=== PATIENT | male | born 1950 | race Caucasian/White ===

== ENCOUNTER → 2018-07-06 12:45 | Outpatient (CLI) | payer MEDICARE, SELFPAY ==
[2018-07-06 14:24] LABS: Absolute Neutrophil Count 5.3 X10^3/uL (2.0-7.7); Basophil# 0.02 X10^3/uL; Basophil% 0.3 % (0-1); Eosinophil# 0.11 X10^3/uL; Eosinophils% 1.4 % (0-5); Hematocrit 47.7 % (40-54); Hemoglobin 15.9 g/dl (13.0-16.5); Lymphocyte % 22.1 % (19-41); Mean Corp Hgb Conc 33.3 g/gl (32-36); Mean Platelet Vol. 9.8 fl (6.2-12.0); Monocyte# 0.57 X10^3/uL; Monocyte% 7.4 % (0-10); Neutrophil # 5.27 X10^3/uL (2.7-7.7); Neutrophil % 68.7 % (47-70); Platelet Count 219 K/mm3 (150-450); RBC Distribution Width CV 12.7 % (11.6-14.6); RBC Distribution Width SD 42.9 fl (35.1-43.9); Red Blood Count 5.13 M/mm3 (4.6-6.2); White Blood Count 7.7 K/mm3 (4.4-11.0)
[2018-07-06 14:26] LABS: POSITIVE COUNT NO; POSITIVE DIFFERENTIAL NO; POSITIVE MORPHOLOGY NO
[2018-07-06 14:43] LABS: Alanine Aminotransfer ALT/SGPT 46 U/L (16-61); Anion Gap 8 (5-15); BUN 21 mg/dL (7-18); Calcium,Total 8.5 mg/dL (8.5-10.1); Chloride 103 mmol/L (98-107); Cholesterol 171 mg/dL (200); Creatinine, Serum 1.31 mg/dL (0.70-1.30); EST Glomerular Filtration Rate 58 mL/min (>60); Est Glom Filt Rate - Afr Amer 70 mL/min (>60); Glucose 89 mg/dL (74-106); High Density Lipoprotein 48 mg/dL; Potassium 3.6 mmol/L (3.5-5.1); Sodium Level 139 mmol/L (136-145); Thyroid Stim Hormone (TSH) 0.87 uIU/mL (0.358-3.74); Triglycerides 108 mg/dL; Very Low Density Lipoprotein 22 mg/dL (5-40)
== END ==
DX: R53.83 Other fatigue (principal); I10 Essential (primary) hypertension; E66.9 Obesity, unspecified
CPT/HCPCS: 36415; 80048; 80061; 84443; 84460; 85025

== ENCOUNTER → 2018-08-23 10:52 | Outpatient (CLI) | payer MEDICARE, SELFPAY ==
[2018-08-23 12:46] LABS: PSA,Total - Annual Screen 2.13 ng/mL (0.00-4.00)
== END ==
DX: Z12.5 Encounter for screening for malignant neoplasm of prostate (principal)
CPT/HCPCS: 36415; 84153; G0103

== ENCOUNTER → 2019-10-17 | Outpatient (CLI) | payer MEDICARE, SELFPAY ==
[2019-10-17 13:25] LABS: Anion Gap 6 (5-15); BUN 22 mg/dL (7-18); BUN/Creat Ratio 16.9 RATIO (10-20); Calcium,Total 8.6 mg/dL (8.5-10.1); Chloride 103 mmol/L (98-107); Cholesterol 174 mg/dL (200); EST Glomerular Filtration Rate 58 mL/min (>60); Est Glom Filt Rate - Afr Amer 70 mL/min (>60); Glucose 90 mg/dL (74-106); High Density Lipoprotein 45 mg/dL; Magnesium 2.5 mg/dL (1.6-2.6); Potassium 3.9 mmol/L (3.5-5.1); Sodium Level 137 mmol/L (136-145); Triglycerides 117 mg/dL; Very Low Density Lipoprotein 23 mg/dL (5-40)
== END | disposition home or self-care (01) ==
LOC: MFPLAB 10:19
PROVIDERS: PCP Family Medicine; Referring Provider Family Medicine; Visit Provider Family Medicine
DX: I10 Essential (primary) hypertension (principal)
CPT/HCPCS: 36415; 80048; 80061; 83735

== ENCOUNTER 2019-12-02 13:00 | Outpatient (RCR) | payer MEDICARE, SELFPAY ==
--- NOTE | 2019-10-25 14:55 | HP.PTEVAL_ITS ---
Patient's Visit Information RICHARD CASTILLO is a 68 year old M referred to Physical Therapy by Dr. Conner Blood DO with a diagnosis of r knee OA. Date of Evaluation: 10/25/19 Physical Therapist: MK RossT, OCS, CSCS - Visit Plan Frequency: 2-3x /Week Duration: 2-4 Weeks Plan: 2-3x/week for 2-4 weeks for. 1. rollout quad and ITB and stretch same, please teach for HEP. 2. strength painfree quad and hip R and progress to home exercises that patient can add to current home program. 3. 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 - Subjective Off and on for 20 years little R knee issue. Stating in April has starte dto buckle with sharp pain. Happens daily now a couple times and it casues him to fall into things. Walks a mile and a half per day. Walking in straight line is not a problem and does not buckle. Has tried copper fit sleeve adn no help. 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 Will have MRI on 10/27. Will f/u Dr. Blood on 11/05/19. Super cautious on steps needs handrail. Sleeping is OK. Daily acitivites are OK just has to take extra precautions. has rehabbed house in lst 6 months and on knees to garden but has to be cautious and use knee pads. Retired. Stiff in am. - Pain R knee pain Pain Intensity (Out of 10): 0 Pain Intensity Range: 0, 9 Comment: 9 when it danielle. - Objective Walks normal with some slightvarus R knee but minimal. No antalgia. Transfers and steps are normal and reciprocal. Tends to pivot slowly ansd with care. Tender to touch medial R knee joint line posterior> anterior. AROM B knees and hip WFL with some ITB and quad tightness at end range but full aROM without pain. HS 90/90 test is -5 L and -8 R. - bounce home, - patellar grind, - valgus and varus., - ant drawer. ankle strength 5/5, knee strength quad 4 R and 4+ L, no pain. HS 4+ B. Hip strength 4 IR and ER and 4- abd and ext and 4+ flexion., No pain. - Goals Goal 1:: Reduce knee giving out incidence to < 1 x week Goal Time Frame: 4-6 Weeks Goal 2:: Pt I approp HEP to minimize future problems Goal Time Frame: 4-6 Weeks Goal 3:: Pt feel 75% improved in overall condition. Goal Time Frame: 4-6 Weeks - Rehabilitation Potential Physical Therapy Diagnosis: R knee OA Rehabilitation Potential: Fair - Anticipated Interventions Patient/Client Instruction: Educate patient on: Condition, Plan of Care For the Purpose of:: To decrease pain, To increase tolerance to activity/condition/position Therapeutic Exercise to Include: Strength training, Flexibilty training For the Purpose of:: To decrease pain, To increase tolerance to activity/condition/position Orthotics: Brace For the Purpose of:: To decrease pain Thank you for the opportunity to evaluate your patient. For Medicare and Medicare HMO plans, please review the plan of care and approve it. It will need to be FAXED BACK to us at [phone] for Medicare purposes. For Medicare only, by signing this I certify the plan of care. Please let me know if there are questions or concerns regarding this plan of care. Physician Signature: Date:
--- NOTE | 2019-12-02 13:29 | HP.PTDCSUM ---
It has been my pleasure to treat RICHARD CASTILLO referred by Dr. Conner Blood DO, with the diagnosis of r knee OA for a total of 4 visit(s). Discharge Date: 12/02/19 Please see the following information for a summary of their discharge status. Subjective: Brought MRI results, lots of degeneration. Drove to [place] last week and harder times getting ex in that week but when I do them 4-5 x/week I feel decent adn a big plus. Doctor wants to know when he wants a new knee. Has had many painfree days. Doing 35 min of walking daily. R knee pain Pain Intensity (Out of 10): 0 % Improvement: 85 Objective/Function: Pt walking without giving out today easilya nd safely. Meeting goals and happy with progress. Balance is very good for his age. Goal 1:: Reduce knee giving out incidence to < 1 x week Goal 2:: Pt I approp HEP to minimize future problems Goal Progress: Goal Met Goal 3:: Pt feel 75% improved in overall condition. Goal Progress: Goal Met Plan: d/c If there are questions or concerns regarding this patient's physical therapy, please feel free to call me at [phone]. Thank you for the referral of this patient. Sincerely, Eliel Huitron, DPT, OCS, CSCS
== END 2019-12-02 19:00 | disposition home or self-care (01) ==
LOC: PT 13:00
PROVIDERS: PCP Family Medicine; Referring Provider Orthopaedic Surgery; Visit Provider Orthopaedic Surgery
DX: M17.11 Unilateral primary osteoarthritis, right knee (principal)
CPT/HCPCS: 97110; 97140; 97161; 97164

== ENCOUNTER → 2020-09-30 12:23 | Outpatient (CLI) | payer MEDICARE, SELFPAY ==
[2020-09-30 15:22] LABS: AST(SGOT) 32 U/L (15-37); Alanine Aminotransfer ALT/SGPT 46 U/L (16-61); Albumin, Serum 3.9 g/dL (3.2-5.0); Alkaline Phosphatase 83 U/L (45-117); Anion Gap 6 (5-15); BUN 13 mg/dL (7-18); BUN/Creat Ratio 11.4 RATIO (10-20); Chloride 104 mmol/L (98-107); Cholesterol 164 mg/dL (200); Creatinine, Serum 1.14 mg/dL (0.70-1.30); EST Glomerular Filtration Rate 67 mL/min (>60); Est Glom Filt Rate - Afr Amer 81 mL/min (>60); Glucose 92 mg/dL (74-106); High Density Lipoprotein 47 mg/dL; Protein, Total 7.9 g/dL (6.4-8.2); Sodium Level 137 mmol/L (136-145); Triglycerides 133 mg/dL; Very Low Density Lipoprotein 27 mg/dL (5-40)
[2020-09-30 15:33] LABS: Microalbumin,Random Urine 92.6 mg/L (NO RANGE EST.); Microalbumin:Creatinine Ratio 75.3 mg/g CRE (<30 mg/g CRE)
== END ==
PROVIDERS: PCP Family Medicine; Referring Provider Family Medicine; Visit Provider Family Medicine
DX: I10 Essential (primary) hypertension (principal)
CPT/HCPCS: 36415; 80053; 80061; 82043; 82570

== ENCOUNTER → 2021-03-31 08:59 | Outpatient (CLI) | payer MEDICARE, SELFPAY ==
[2021-03-31 10:14] LABS: Absolute Lymphocyte Count 1.61 X10^3/uL (0.83-4.51); Absolute Neutrophil Count 3.2 X10^3/uL (2.0-7.7); Basophil# 0.03 X10^3/uL; Basophil% 0.6 % (0-1); Eosinophils% 1.8 % (0-5); Hematocrit 46.6 % (40-54); Hemoglobin 15.9 g/dL (13.0-16.5); Lymphocyte # 1.61 X10^3/ul (0.83-4.51); Lymphocyte % 29.6 % (19-41); Mean Corp Hgb Conc 34.1 g/dL (32-36); Mean Corpuscular Hgb 31.1 pg (27.0-32.0); Mean Corpuscular Volume 91.2 fL (80-94); Mean Platelet Vol. 9.3 fl (6.2-12.0); Monocyte# 0.46 X10^3/uL; Monocyte% 8.5 % (0-10); NRBC Flagged by Analyzer 0 % (0-5); Neutrophil # 3.23 X10^3/uL (2.7-7.7); Neutrophil % 59.3 % (47-70); Platelet Count 208 K/mm3 (150-450); RBC Distribution Width CV 13.1 % (11.6-14.6); RBC Distribution Width SD 44.2 fl (35.1-43.9); Red Blood Count 5.11 M/mm3 (4.6-6.2); White Blood Count 5.4 K/mm3 (4.4-11.0)
[2021-03-31 10:38] LABS: AST(SGOT) 25 U/L (15-37); Alanine Aminotransfer ALT/SGPT 38 U/L (16-61); Alkaline Phosphatase 79 U/L (45-117); Anion Gap 8 (5-15); BUN 16 mg/dL (7-18); BUN/Creat Ratio 13.4 RATIO (10-20); Calcium,Total 8.8 mg/dL (8.5-10.1); Chloride 106 mmol/L (98-107); Cholesterol 186 mg/dL (200); Creatinine, Serum 1.19 mg/dL (0.70-1.30); EST Glomerular Filtration Rate 64 mL/min (>60); Est Glom Filt Rate - Afr Amer 77 mL/min (>60); Globulin 3.9 g/dL (2.2-4.2); Glucose 97 mg/dL (74-106); High Density Lipoprotein 48 mg/dL; Potassium 3.8 mmol/L (3.5-5.1); Protein, Total 7.9 g/dL (6.4-8.2); Sodium Level 141 mmol/L (136-145); Triglycerides 149 mg/dL; Uric Acid 5.5 mg/dL (3.5-7.2); Very Low Density Lipoprotein 30 mg/dL (5-40)
== END ==
PROVIDERS: PCP Family Medicine; Referring Provider Family Medicine; Visit Provider Family Medicine
DX: I10 Essential (primary) hypertension (principal); M79.673 Pain in unspecified foot
CPT/HCPCS: 36415; 80053; 80061; 84550; 85025

== ENCOUNTER → 2021-09-17 | Outpatient (CLI) | payer MEDICARE, SELFPAY ==
[2021-09-17 16:05] LABS: PSA,Total- Diagnostic 2.38 ng/mL (0.0-4.0)
[2021-09-23 11:09] LABS: Testosterone, Free 5.98 ng/dL (5.00-21.00)
[2021-09-23 21:41] LABS: Testosterone, % Free 1.96 % (1.50-4.20); Testosterone, Total 305 ng/dL (264-916)
== END | disposition home or self-care (01) ==
LOC: MTLAB 13:06
PROVIDERS: PCP Family Medicine; Referring Provider Family Medicine; Visit Provider Family Medicine
DX: N52.9 Male erectile dysfunction, unspecified (principal); R39.15 Urgency of urination
CPT/HCPCS: 36415; 84153; 84402; 84403

== ENCOUNTER → 2021-11-08 | Outpatient (CLI) | payer MEDICARE, SELFPAY | END | disposition home or self-care (01) | LOC: LABSPEC 12:27 | PROVIDERS: PCP Family Medicine; Visit Provider Nurse Practitioner Family | DX: U07.1 COVID-19 (principal) | CPT/HCPCS: 87635; U0003; U0005 ==

== ENCOUNTER → 2021-12-01 | Outpatient (CLI) | payer MEDICARE, SELFPAY ==
--- NOTE | 2021-12-01 12:52 | US_ITS ---
STUDY: RENAL ULTRASOUND - COMPLETE REASON FOR EXAM: Male, 71 years old. Urinary frequency. TECHNIQUE: Ultrasound evaluation of the kidneys was performed with real-time and static montalvo-scale imaging. COMPARISON: None. FINDINGS: RIGHT KIDNEY: Normal location of the right kidney, which is normal in size. The right kidney measures 11 cm. There is a normal cortex of the right kidney. The renal cortex measures 1.8 cm. There is no right renal mass or cyst. There are no right renal calculi. There is no right hydronephrosis. DISTAL RIGHT URETER: There is non-visualization of the distal right ureter. There is no demonstrated right ureterovesical junction calculus. There is no demonstrated right ureteral jet. LEFT KIDNEY: Normal location of the left kidney, which is normal in size. The left kidney measures 11.6 cm. There is a normal cortex of the left kidney. The renal cortex measures 2.3 cm. There is no left renal mass or cyst. There are no left renal calculi. There is no left hydronephrosis. DISTAL LEFT URETER: There is non-visualization of the distal left ureter. There is no demonstrated left ureterovesical junction calculus. There is no demonstrated left ureteral jet. BLADDER: The poorly distended urinary bladder has a volume of 92 ml. The empty urinary bladder has a volume of 64 ml. The bladder wall appears trabeculated. Measuring 3 mm in thickness. The prostate appears to extend upward into the base of the urinary bladder. There is no other bladder mass. There are no demonstrated bladder calculi. US/Kidney and Bladder IMPRESSION: 1. Normal ultrasound of the kidneys. 2. Trabeculated urinary bladder wall with large post void residual. 3. Enlarged prostate. Electronically Signed: Aquiles Layton DO at 17:17 EDT Reading Location ID and State: [address] [place] [address] Tel [phone], Service support ,
== END | disposition home or self-care (01) ==
LOC: US 12:51
PROVIDERS: PCP Family Medicine; Referring Provider Family Medicine; Visit Provider Family Medicine
DX: R35.0 Frequency of micturition (principal)
CPT/HCPCS: 76770

== ENCOUNTER → 2022-05-31 | Outpatient (CLI) | payer MEDICARE, SELFPAY ==
--- NOTE | 2022-05-31 09:10 | RAD_ITS ---
INDICATION: CHEST PAIN EXAMINATION: Frontal and lateral views of the chest. COMPARISON: None. FINDINGS: Frontal and lateral views of the chest were obtained. The cardiac silhouette is not enlarged. No confluent airspace disease. No pleural effusion or pneumothorax. No acute fracture identified. RAD/Chest PA and Lateral IMPRESSION: No acute pulmonary disease. Electronically Signed: Uvaldo Gallegos MD at 0:53 EST ,
[2022-05-31 09:48] LABS: Absolute Neutrophil Count 3.3 X10^3/uL (2.0-7.7); Basophil# 0.03 X10^3/uL; Basophil% 0.6 % (0-1); Eosinophil# 0.11 X10^3/uL; Eosinophils% 2.1 % (0-5); Hematocrit 48.9 % (40-54); Hemoglobin 16.2 g/dL (13.0-16.5); Lymphocyte % 24.9 % (19-41); Mean Corp Hgb Conc 33.1 g/dL (32-36); Mean Corpuscular Hgb 31.1 pg (27.0-32.0); Mean Corpuscular Volume 93.9 fL (80-94); Mean Platelet Vol. 9.2 fl (6.2-12.0); Monocyte# 0.47 X10^3/uL; NRBC Flagged by Analyzer 0 % (0-5); Neutrophil # 3.31 X10^3/uL (2.7-7.7); Neutrophil % 63.2 % (47-70); Platelet Count 193 K/mm3 (150-450); RBC Distribution Width CV 12.7 % (11.6-14.6); RBC Distribution Width SD 43.8 fl (35.1-43.9); Red Blood Count 5.21 M/mm3 (4.6-6.2); White Blood Count 5.2 K/mm3 (4.4-11.0)
[2022-05-31 10:33] LABS: ALB/GLOB Ratio 0.9 RATIO (0.9-2.4); AST(SGOT) 32 U/L (15-37); Alanine Aminotransfer ALT/SGPT 48 U/L (16-61); Albumin, Serum 3.6 g/dL (3.2-5.0); Alkaline Phosphatase 70 U/L (45-117); Anion Gap 7 (5-15); BUN 13 mg/dL (7-18); BUN/Creat Ratio 12.6 RATIO (10-20); Calcium,Total 8.8 mg/dL (8.5-10.1); Chloride 105 mmol/L (98-107); Creatinine, Serum 1.03 mg/dL (0.70-1.30); EST Glomerular Filtration Rate 75 mL/min (>60); Est Glom Filt Rate - Afr Amer 91 mL/min (>60); Glucose 93 mg/dL (74-106); Magnesium 2.1 mg/dL (1.6-2.6); Potassium 3.7 mmol/L (3.5-5.1); Protein, Total 7.6 g/dL (6.4-8.2); Sodium Level 138 mmol/L (136-145); Thyroid Stim Hormone (TSH) 1.15 uIU/mL (0.358-3.74)
== END | disposition home or self-care (01) ==
PROVIDERS: PCP Family Medicine; Referring Provider Family Medicine; Visit Provider Family Medicine
DX: R07.89 Other chest pain (principal); R13.10 Dysphagia, unspecified; R42 Dizziness and giddiness
CPT/HCPCS: 36415; 71046; 80053; 83735; 84443; 85025

== ENCOUNTER 2022-06-02 21:35 | Emergency (ER) | payer MEDICARE, SELFPAY ==
[2022-06-02 21:35] VITALS: BP 171/107; PULSE 68; RESP 16; TEMP 36.7; O2SAT 96; BMI 34.2
--- NOTE | 2022-06-02 21:44 | EKG12_ITS ---
Test Reason : DIZZINESS Blood Pressure : / mmHG Vent. Rate : 066 BPM Atrial Rate : 066 BPM P-R Int : 156 ms QRS Dur : 104 ms QT Int : 406 ms P-R-T Axes : 062 011 045 degrees QTc Int : 425 ms Sinus rhythm with occasional Premature ventricular complexes Incomplete right bundle branch block Borderline ECG Confirmed by HIRAM MALONE, JUANCARLOS ([id number]), editorial cartoonist YANA WASHINGTON ([id number]) on 06/06/2022 11:29:27 AM Referred By: Confirmed By:JUANCARLOS GANDHI MD
[2022-06-02 21:48] VITALS: BP 154/95; PULSE 63; RESP 21; O2SAT 95
[2022-06-02 21:54] VITALS: BMI 33.7
--- NOTE | 2022-06-02 22:08 | CT_ITS ---
INDICATION: Intractable dizziness EXAMINATION: CTA head and neck with contrast TECHNIQUE: Subsequently, routine carotid CT angiogram protocol was performed without and with IV contrast. In addition, images were obtained of the [place]. NASCET criteria using the distal ICAs for comparison were used for evaluation of stenoses. 3D reconstructions were reviewed. A radiation dose optimization technique was used for this scan. IV Contrast dosage and agent: COMPARISON: None. FINDINGS: --CTA NECK: AORTIC ARCH AND BRANCHES: Normal anatomy, patent. RIGHT CCA: No occlusion, significant stenosis or dissection. RIGHT ICA: Mild stenosis of the proximal ICA due to atheromatous plaque. LEFT CCA: No occlusion, significant stenosis or dissection. LEFT ICA: No occlusion, significant stenosis or dissection. RIGHT VERTEBRAL ARTERY: No occlusion, significant stenosis or dissection. LEFT VERTEBRAL ARTERY: No occlusion, significant stenosis or dissection. NECK SOFT TISSUES: Unremarkable. --CTA HEAD: --Anterior circulation: ICAs: No significant stenosis at the intracranial/visualized segments. ACAs: No significant stenosis at the visualized segments. ACOM: Present. MCAs: No significant stenosis at the visualized segments. --Posterior circulation: PCOMs: Nonvisualized. senior functional analyst: No significant stenosis at the visualized segments. BASILAR ARTERY: No significant stenosis. VERTEBRAL ARTERIES: No significant stenosis at the intradural/visualized segments. No evidence of intracranial aneurysm or vascular malformation. Mild mucosal thickening in the maxillary sinuses. CT/CTA Head AND Neck W/ Contrast IMPRESSION: Mild right ICA stenosis due to plaque. Otherwise negative CTA head and neck. Electronically Signed: Steph Martinez MD at 23:51 EST Reading Location ID and State: [id number] / Tel , Service support ,
[2022-06-02 22:21] LABS: Bedside Glucose 143 mg/dL (74-106)
[2022-06-02 22:36] LABS: Absolute Lymphocyte Count 1.85 X10^3/uL (0.83-4.51); Absolute Neutrophil Count 3.7 X10^3/uL (2.0-7.7); Basophil# 0.03 X10^3/uL; Basophil% 0.5 % (0-1); Eosinophil# 0.22 X10^3/uL; Eosinophils% 3.4 % (0-5); Hematocrit 46.2 % (40-54); Hemoglobin 15.5 g/dL (13.0-16.5); Lymphocyte # 1.85 X10^3/ul (0.83-4.51); Lymphocyte % 28.5 % (19-41); Mean Corp Hgb Conc 33.5 g/dL (32-36); Mean Corpuscular Hgb 31.5 pg (27.0-32.0); Mean Corpuscular Volume 93.9 fL (80-94); Mean Platelet Vol. 9.5 fl (6.2-12.0); Monocyte# 0.63 X10^3/uL; Monocyte% 9.7 % (0-10); NRBC Flagged by Analyzer 0 % (0-5); Neutrophil # 3.74 X10^3/uL (2.7-7.7); Neutrophil % 57.7 % (47-70); Platelet Count 203 K/mm3 (150-450); RBC Distribution Width CV 12.7 % (11.6-14.6); RBC Distribution Width SD 43.7 fl (35.1-43.9); Red Blood Count 4.92 M/mm3 (4.6-6.2); White Blood Count 6.5 K/mm3 (4.4-11.0)
[2022-06-02 22:50] LABS: Anion Gap 6 (5-15); BUN 17 mg/dL (7-18); BUN/Creat Ratio 14.9 RATIO (10-20); Calcium,Total 8.5 mg/dL (8.5-10.1); Chloride 106 mmol/L (98-107); Creatinine, Serum 1.14 mg/dL (0.70-1.30); EST Glomerular Filtration Rate 67 mL/min (>60); Est Glom Filt Rate - Afr Amer 81 mL/min (>60); Estimated Creatinine Clearance 52.08 ml/min; Glucose 139 mg/dL (74-106); Magnesium 2.1 mg/dL (1.6-2.6); Potassium 3.8 mmol/L (3.5-5.1); Sodium Level 140 mmol/L (136-145)
[2022-06-02 22:54] VITALS: BP 147/102; PULSE 68; RESP 17; O2SAT 92
[2022-06-02 23:22] LABS: Bacteria 0 SEEN /hpf (None Seen); Mucous, Urine 0 SEEN /hpf (<or=2+); Red Blood Cells-Urine 0 SEEN /hpf (0-5); Squamous Epithelial Cells - UA 0 SEEN /hpf (0-5); White Blood Cells 0 SEEN /hpf (0-5)
[2022-06-02 23:25] LABS: Color, Urine Yellow (Yellow); Glucose, Dipstick Normal (Normal); Ketone-Dipstick Negative (Negative); Leukocyte Esterase-Dipstick Negative /ul (Negative); Nitrite-Dipstick Negative (Negative); Occult Blood-Urine Negative /ul (Negative); Protein-Dipstick 15 mg/dl (Negative); Urine Bilirubin Dipstick Negative (Negative); Urine Clarity Clear (Clear); Urine Urobilinogen Normal (Normal)
[2022-06-03 00:03] VITALS: BP 142/93; BP 144/87; BP 155/98; PULSE 63; PULSE 68; PULSE 69; RESP 18; O2SAT 97
[2022-06-03] MEDS: 0.9% Normal Saline 1,000 ML 999 ML IV (00:09)
--- NOTE | 2022-06-03 01:00 | EX.ED.DYSGE1 ---
HPI History of Present Illness Chief Complaint: Neuro S/Sx Narrative Narrative: Patient is a 71-year-old male with past medical history of hypertension. He states since the end of March he has been having bouts of dizziness which she describes as more of a sense of motion that seem to occur mainly with changes in position. He states that last week he was watching TV when the screen became blurry for a few minutes and then resolved. He states this evening he was having some dizziness and also noticed some change in vision and this concerned him as it was a repeat episode from a few weeks ago and he thought he may be having some type of strokelike symptoms and therefore came in for evaluation. Patient does state that upon arrival the vision has resolved and that his dizziness has improved at rest as well. [facility] Medical History (Updated 06/03/22 @ 01:[address] Miguel A Knight, DO) Hypertension Home Medications diazepam 5 mg tablet (Valium) 2.5 mg PO TID Dizziness #10 tabs 06/03/22 [Rx Last Taken Unknown] Allergy/AdvReac Type Severity Reaction Status Date / Time morphine Allergy Anaphylaxis Verified 06/02/22 21:46 Social History Smoking Status: Never smoker [facility] ED Constitutional Constitutional ED: Denies chills or fever(s) Eyes Eyes: Reports change in vision ENT ENT ED: Reports other Details: Patient denies tinnitus ; Denies ear pain or sore throat Cardiovascular Cardiovascular: Denies chest pain Respiratory/Chest Respiratory/Chest: Denies cough or dyspnea Gastrointestinal Gastrointestinal: Denies abdominal pain, diarrhea, nausea or vomiting Genitourinary Genitourinary ED: Denies dysuria Musculoskeletal Musculoskeletal: Denies myalgias Integumentary Denies rash Neurologic Neurologic: Reports other Details: Positive dizziness ; Denies headache(s), paresthesias or weakness Hematologic/Lymphatic Hematologic/Lymphatic: Denies easy bleeding or easy bruising EXAM Physical Exam Const Vital Signs: 06/02/22 21:35 06/02/22 21:48 06/02/22 21:49 Temperature 98.0 F Temperature Source Temporal Pulse Rate 68 63 Pulse Rate [Lying] Pulse Rate [Sitting (for 1 minute prior to obtaining)] Pulse Rate [Standing (for 1 minute prior to obtaining)] Respiratory Rate 16 21 H Respiratory Effort Normal Non-Labored Blood Pressure 171/107 H 154/95 H Blood Pressure [Lying] Blood Pressure [Sitting (for 1 minute prior to obtaining)] Blood Pressure [Standing (for 1 minute prior to obtaining)] Blood Pressure Mean 128 114 Blood Pressure Mean [Lying] Blood Pressure Mean [Sitting (for 1 minute prior to obtaining)] Blood Pressure Mean [Standing (for 1 minute prior to obtaining)] Pulse Ox 96 95 Oxygen Delivery Method Room Air Room Air 06/02/22 22:54 06/03/22 00:03 06/03/22 00:03 Temperature Temperature Source Pulse Rate 68 68 Pulse Rate [Lying] 63 Pulse Rate [Sitting (for 1 minute prior to obtaining)] 69 Pulse Rate [Standing (for 1 minute prior to obtaining)] 68 Respiratory Rate 17 18 Respiratory Effort Blood Pressure 147/102 H Blood Pressure [Lying] 144/87 H Blood Pressure [Sitting (for 1 minute prior to obtaining)] 142/93 H Blood Pressure [Standing (for 1 minute prior to obtaining)] 155/98 H Blood Pressure Mean 117 Blood Pressure Mean [Lying] 106 Blood Pressure Mean [Sitting (for 1 minute prior to obtaining)] 109 Blood Pressure Mean [Standing (for 1 minute prior to obtaining)] 117 Pulse Ox 92 97 Oxygen Delivery Method Room Air Room Air 06/03/22 01:14 Temperature Temperature Source Pulse Rate 69 Pulse Rate [Lying] Pulse Rate [Sitting (for 1 minute prior to obtaining)] Pulse Rate [Standing (for 1 minute prior to obtaining)] Respiratory Rate 18 Respiratory Effort Blood Pressure 145/68 H Blood Pressure [Lying] Blood Pressure [Sitting (for 1 minute prior to obtaining)] Blood Pressure [Standing (for 1 minute prior to obtaining)] Blood Pressure Mean Blood Pressure Mean [Lying] Blood Pressure Mean [Sitting (for 1 minute prior to obtaining)] Blood Pressure Mean [Standing (for 1 minute prior to obtaining)] Pulse Ox 100 Oxygen Delivery Method Positive well nourished and well developed General Appearance ED: well developed HEENT Reports moist mucous membranes Eyes PERRL and EOMs intact bilaterally Eyes Narrative: No blood or thunder appearance noted on ophthalmologic exam there is also no paleness to the macula noted Neck supple Resp normal respiratory effort and clear to auscultation bilaterally Cardio regular rate and regular rhythm Rate: other Other Details: Radial pulses are plus 2 out of 4 bilaterally are equal and symmetric GI normal to inspection, nondistended, normoactive bowel sounds, non-tender, non-distended and no masses Auscultation: normoactive bowel sounds Palpation: soft Extremity normal to inspection Neuro oriented x3, CN's II-XII intact bilaterally and no sensory deficits noted Neuro Narrative: Cranial nerves II through XII are grossly intact there are no focal neurologic deficits. No pronator drift no dysmetria no truncal ataxia. NIH stroke scale score of 0. There is mild horizontal nystagmus noted and positive Hallpike Chandler exam on right. Sensorium / Orientation: alert Psych mental status grossly normal Skin no rashes or lesions noted MDM MDM MDM Narrative Medical decision making narrative: Patient presented to the ER slightly hypertensive but has a history of this and otherwise vitals are stable. He reported longstanding intermittent dizziness that is worse with position change which is most consistent with peripheral vertigo as he has a positive Hallpike Chandler exam and horizontal nystagmus. However as there is a chance it could be central vertigo or brainstem in nature I did elect to perform basic labs and a CTA especially as he reported change in vision. Lab work showed no anemia no electrolyte derangement no signs of acute kidney injury. Orthostatic vital signs were negative. CTA showed mild right internal carotid artery stenosis which could be a cause of intermittent vision change but as the stenosis is just mild I doubt this is causing any issues. The patient was given IV fluids and oral Valium. On reevaluation he had improvement of symptoms and his vision remains normal. He is able to ambulate with a steady gait and therefore this time I do not feel there is need for further work-up as symptoms have resolved and work-up reveals no signs of acute stroke anemia or electrolyte dysfunction. He can be given symptomatic medication and discharged home with outpatient follow-up Lab Data Attestation: I reviewed the patient's lab results. Labs: Laboratory Results - last 24 hr 06/02/22 06/02/22 06/02/22 21:58 22:31 22:31 WBC 6.5 RBC 4.92 Hgb 15.5 Hct 46.2 MCV 93.9 MCH 31.5 MCHC 33.5 RDW Std Deviation 43.7 RDW Coeff of Xavier 12.7 Plt Count 203 MPV 9.5 Immature Gran % (Auto) 0.200 Neut % (Auto) 57.7 Lymph % (Auto) 28.5 [place] % (Auto) 9.7 Eos % (Auto) 3.4 Baso % (Auto) 0.5 Absolute Neuts (auto) 3.7 Absolute Lymphs (auto) 1.85 Nucleated RBC % 0 Sodium 140 Potassium 3.8 Chloride 106 Carbon Dioxide 28.0 Anion Gap 6 BUN 17 Creatinine 1.14 Estim Creat Clear Calc 52.08 Est GFR (MDRD) Af Amer 81 Est GFR (MDRD) Non-Af 67 BUN/Creatinine Ratio 14.9 Glucose 139 H Calcium 8.5 Magnesium 2.1 Urine Color Urine Clarity Urine pH Ur Specific [place] Urine Protein Urine Glucose (UA) Urine Ketones Urine Occult Blood Urine Nitrite Urine Bilirubin Urine Urobilinogen Ur Leukocyte Esterase Urine RBC Urine WBC Ur Squamous Epith Cells Urine Bacteria Urine Mucus POC Glucose 143 H 06/02/22 23:18 WBC RBC Hgb Hct MCV MCH MCHC RDW Std Deviation RDW Coeff of Xavier Plt Count MPV Immature Gran % (Auto) Neut % (Auto) Lymph % (Auto) [place] % (Auto) Eos % (Auto) Baso % (Auto) Absolute Neuts (auto) Absolute Lymphs (auto) Nucleated RBC % Sodium Potassium Chloride Carbon Dioxide Anion Gap BUN Creatinine Estim Creat Clear Calc Est GFR (MDRD) Af Amer Est GFR (MDRD) Non-Af BUN/Creatinine Ratio Glucose Calcium Magnesium Urine Color Yellow Urine Clarity Clear Urine pH 7.0 Ur Specific [place] 1.010 Urine Protein 15 H Urine Glucose (UA) Normal Urine Ketones Negative Urine Occult Blood Negative Urine Nitrite Negative Urine Bilirubin Negative Urine Urobilinogen Normal Ur Leukocyte Esterase Negative Urine RBC 0 SEEN Urine WBC 0 SEEN Ur Squamous Epith Cells 0 SEEN Urine Bacteria 0 SEEN Urine Mucus 0 SEEN POC Glucose Radiography Diagnostic Testing: Clinical Impression(s) from Imaging Studies Head/Neck CTA 06/02/22 22:08 IMPRESSION: Mild right ICA stenosis due to plaque. Otherwise negative CTA head and neck. Electronically Signed: Steph Martinez MD at 23:51 EST Reading Location ID and State: [id number] / Tel , Service support , Discharge Plan Triage Chief Complaint: Neuro S/Sx ED Provider: Miguel A Knight Dx/Rx/DC Orders Clinical Impression: Peripheral vertigo, Stenosis of right internal carotid artery Instructions: ED Vertigo, Unspecified, Carotid Artery Disease Prescriptions: New diazepam [Valium] 5 mg tablet 2.5 mg PO TID Qty: 10 0RF Primary Care Provider: Eliel Bonner Referrals: Eliel Bonner MD [Primary Care Provider] - Activity Restrictions/Additional Instructions: Your dizzy symptoms seem to be related to the inner ear and peripheral vertigo therefore take the Valium as directed to help control this. Your CTA did show mild right internal carotid artery stenosis which can cause vision changes. As a CTA stated this was mild I have low concern that this is the cause of your symptoms and was most likely related to the vertigo please talk your family doctor about working this up further with possible ultrasound and/or MRI and return to the ER should you have any further concerns Disposition Disposition: Home, Self Care Discharge Date/Time: 06/03/22 01:15
[2022-06-03 01:14] VITALS: BP 145/68; PULSE 69; RESP 18; O2SAT 100
== END 2022-06-03 01:15 | disposition home or self-care (01) ==
PROVIDERS: Emergency Provider Emergency Medicine; PCP Family Medicine; Visit Provider Emergency Medicine
DX: H81.399 Other peripheral vertigo, unspecified ear (principal); I65.21 Occlusion and stenosis of right carotid artery; I10 Essential (primary) hypertension
CPT/HCPCS: 70496; 70498; 80048; 81001; 82962; 83735; 85025; 93005; 96360; 99284; J7030; Q9967; A4216

== ENCOUNTER → 2022-06-06 | Outpatient (CLI) | payer MEDICARE, SELFPAY ==
[2022-06-06 18:08] LABS: CRP < 2.90 mg/L (0.0-3.0)
[2022-06-06 18:23] LABS: Erythrocyte Sedimentation Rate 13 mm/hr (0-20)
== END | disposition home or self-care (01) ==
LOC: MFPLAB 14:33
PROVIDERS: PCP Family Medicine; Visit Provider Family Medicine
DX: J01.90 Acute sinusitis, unspecified (principal)
CPT/HCPCS: 36415; 85652; 86140

== ENCOUNTER → 2022-06-07 | Outpatient (CLI) | payer MEDICARE, SELFPAY ==
--- NOTE | 2022-06-07 09:47 | RAD_ITS ---
STUDY: X-RAY - ESOPHAGUS (BARIUM SWALLOW) WITH FLUOROSCOPY REASON FOR EXAM: Male, 71 years old. Dysphagia of liquid and solid TECHNIQUE: 14 view(s) of the esophagus were obtained following swallowing of barium. FLUOROSCOPY TIME (if supplied): (23 seconds) minutes/seconds. 2.3 mGy COMPARISON: None. FINDINGS: There is no demonstrated esophageal foreign body. There is no demonstrated stricture or mucosal abnormality. Normal gastroesophageal junction, without a demonstrated hiatal hernia. The patient ingested a 12 mm tablet of barium without any difficulty. There is atherosclerotic tortuosity of the aortic arch and descending thoracic aorta. Normal visualized pulmonary parenchyma. Normal visualized osseous structures of the thorax. RAD/Esophagus Single Contrast IMPRESSION: Normal plain film x-ray examination (barium swallow) of the esophagus. Electronically Signed: Hernan Peter MD at 10:41 EST ,
== END | disposition home or self-care (01) ==
LOC: RAD 09:46
PROVIDERS: PCP Family Medicine; Visit Provider Family Medicine
DX: R13.10 Dysphagia, unspecified (principal)
CPT/HCPCS: 74220

== ENCOUNTER → 2022-06-08 | Outpatient (CLI) | payer MEDICARE, SELFPAY ==
--- NOTE | 2022-06-08 14:52 | STRESSREP ---
Stress Test Report Exercise stress test. 71-year-old male with a history of chest pain Stress protocol: Resting EKG demonstrates normal sinus rhythm with a rate of 62 bpm resting blood pressure is 148/96 mmHg. The patient exercised according to the regular Cliff protocol for a total duration of 7 minutes and 15 seconds attaining a maximum heart rate of 153 bpm which was 104% of maximum predicted heart rate; the maximum workload was 10.4 metabolic equivalents. At rest there were no ST or T wave changes noted to suggest ischemia and at peak exercise upsloping ST changes only were noted which did not meet the criteria for ischemia. No clinical angina was noted the test was terminated due to the target heart rate being achieved/fatigue as well as shortness of breath and occasional wheezing. The peak blood pressure was 210/110 mmHg. the above is suggestive of a hypertensive response to exercise. Rate-pressure product was 20,900. Conclusion: Stress test with no EKG criteria for ischemia at a high workload. Hypertensive response to exercise
== END | disposition home or self-care (01) ==
PROVIDERS: PCP Family Medicine; Visit Provider Family Medicine
DX: R07.89 Other chest pain (principal)
CPT/HCPCS: 93017

== ENCOUNTER → 2022-07-12 | Outpatient (CLI) | payer MEDICARE, SELFPAY ==
--- NOTE | 2022-07-12 15:22 | ST.MBS ---
Modified Barium Swallow - Patient Information Study Date: 07/12/22 Study Time: 13:10 Direct Billable Minutes: 115 Total Minutes procedure & reportin Diagnosis: Dysphagia, unspecified (R13.10), GERD (K21.9) Referring Physician: Parrish Camilo Reason for Referral: Objectively assess swallow function, assess risk for aspiration, and determine recommendations for least restrictive diet textures and compensatory strategies to improve safety of swallow. Medical History: Daren Gonzalez is a 71-year-old male with a history of a deviated septum, past hx of surgery for cauliflower ear, and hx of reflux. Patient is taking omeprazole to manage reflux. Patient reports he has been experiencing liquids occasionally feeling caught in his throat, at the level of his [place] apple, and occasionally foods being caught. Patient reports more concern for liquids rather than foods. Patient reports these symptoms occur ~every 1-3 days. Patient reports he will cough on drinks/food, with no mention of regurgitation. Patient referred by Dr. Camilo to assess presence/risk for aspiration. Current Diet Ordered: Regular textures / Thin liquids Dentition: WNL, Natural Teeth Mental Status: WNL Respiratory Status: Oxygenating on Room Air - Penetration-Aspiration Scale Penetration-Aspiration Scale: OBJECTIVE ASSESSMENT OF SWALLOW FUNCTION (QUANTITATIVE ? PER TRIAL): PENETRATION / ASPIRATION SCALE (CHU): 1 = does not enter airway 2 = enters airway/above vocal folds/ejected 3 = enters airway/above vocal folds/not ejected 4 = enters airway/contacts vocal folds/ejected 5 = enters airway/contacts vocal folds/not ejected 6 = enters airway/below vocal folds/ejected 7 = enters airway/below vocal folds/not ejected despite effort 8 = enters airway/below vocal folds/no effort VIDEOFLOROSCOPIC SCALE SCORE (CHU): Grade I = aspiration of material that has penetrated into the laryngeal vestibule, intact cough reflex Grade II = aspiration < 10 % of the bolus, intact cough reflex Grade III = aspiration of < 10 % of the bolus, reduced cough reflex or aspiration of > 10 % of the bolus, intact cough reflex Grade IV = aspiration of > 10 % of the bolus, reduced cough reflex - Penetration-Aspiration Scale Score Thin Liquid via teaspoon Result: 1= does not enter airway Thin Liquid via teaspoon Trial 2 Result: 1= does not enter airway Thin Liquid via small single sip from cup Result: 2= enter airway/above vocal folds/ejected Frederika Thick Liquid via small single sip from cup Result: 2= enter airway/above vocal folds/ejected Pudding via teaspoon w/ esophageal screen Result: 1= does not enter airway 1/2 Cookie Result: 1= does not enter airway Thin Liquid via sequential sips from straw Result: 2= enter airway/above vocal folds/ejected 1/2 Cookie w/esophageal screen Result: 1= does not enter airway - Oral Phase Labial Seal: No Labial Escape Tongue Control During Bolus Hold: Posterior escape of greater than half of bolus Bolus Preparation/Mastication: Timely and efficient chewing and mashing Bolus Transport/Lingual Motion: Repetitive/disorganized tongue motion Oral Residue: Residue collection on oral structures - Pharyngeal Phase Initiation of Pharyngeal Swallow: Bolus head in pyriforms Soft Palate Elevation: Trace column of contrast/air between soft palate and pharyngeal wall Laryngeal Elevation: Comp. Superior move thyroid cart w/comp. apprx arytenoid cart-epig pet Anterior Hyoid Excursion: Partial anterior movement Epiglottic Movement: Complete inversion Laryngeal Vestibule Closure at Height of Swallow: Incomplete; narrow column of air/contrast in laryngeal vestibule Pharyngeal Stripping Wave: Present - complete Pharyngoesophageal Segment Opening: Complete distension and complete duration; no obstruction of flow Tongue Base Retraction: Trace column of contrast between tongue base & post. pharyngeal wall Pharyngeal Residue: Trace residue within or on pharyngeal structures - Esophageal Phase Esophageal Clearance: Esophageal retention w/ retrograde flow below pharyngoesophageal seg. - with thin sequential straw sip - Treatment Strategies Effects of treatment strategies attemped:: alternating sip w/solid wash for esophageal clearance = effective - Diagnosis/Impression Diagnosis: Esophageal Dysphagia (R13.14) Impression: Oropharyngeal swallow grossly within normal limits. Findings are as follows: -Decreased bolus control with >1/2 of the bolus spilling to pyriforms prior to swallow onset. -Lingual pumping with second swallow of first cookie for A-P transport; otherwise, brisk tongue motion. -Mild oral residue after the swallows, which cleared with independent use of sequential swallows as needed. Patient observed to piecemeal cup sips at all levels of thickness, pudding and cookie textures.?? -Delayed swallow onset, resulting in trace penetration which fully ejected. -Small osteophytes at the level of C5-C6, which did not appear to obstruct swallowing function or bolus clearance. ? The esophageal phase is primarily marked by... -Esophageal retention of sequential thin liquids in mid and lower esophagus, with retrograde below UES. Solid texture wash was effective in clearing thin liquid contrast from the esophagus. SEE esophageal screen of sequential sips of thin liquids in PACS for further details. - Recommendations Diet: Regular Textures, Thin Liquids Comment: Will recommend the patient to continue following PCP, and to consult with GI doctor to manage esophageal retention of liquids and ongoing reflux. No outpatient dysphagia therapy warranted at this time. Will recommend patient to follow general precautions for esophageal dysphagia. Recommendations include alternating bites/sips with a reduced rate, and to remain sitting upright 30 minutes after a meal. Compensatory Strategies: Small Bites, Small Sips, Slow Rate, Alternate bites/solids and sips/liquids, Remain sitting upright for 30 minutes after PO intake Recommend Repeat Modified Barium Swallow: No Need for Skilled Speech Therapy Services: No Recommended Referrals: GI Consult Education Completed: 1. Described result of evaluation. - Status Active ST Patient: Active - Contact Information [facility] Speech Therapy:: Priya Pham M.A. [facility] [employer] HELPER Speech-Language Pathologist [facility] [address] [place] [address] [phone] 07/12/22 15:42
== END | disposition home or self-care (01) ==
LOC: RAD 12:55
PROVIDERS: PCP Family Medicine; Visit Provider Surgery
DX: R13.10 Dysphagia, unspecified (principal)
CPT/HCPCS: 74230; 92611

== ENCOUNTER → 2022-11-30 | Outpatient (CLI) | payer MEDICARE, SELFPAY ==
--- NOTE | 2022-11-30 12:42 | MRI_ITS ---
INDICATION: DIZZINESS,TINNITUS, headache. Dizziness. EXAMINATION: MRI - MR Brain WO/W Contrast TECHNIQUE: MRI examination of brain obtained with standard protocol including multiplanar multiecho imaging. MRI examination of the brain obtained with standard protocol including multiplanar multiecho pre and postcontrast imaging with dedicated imaging of the posterior cranial fossa and IACs. Pre and Postcontrast imaging obtained. IV Contrast Dosage and Agent: 20 mL Clariscan COMPARISON: CTA examination of 06/02/2022 FINDINGS: HEMISPHERES, CEREBELLUM AND BRAINSTEM: 1. The cerebral parenchyma, ventricular system, subarachnoid spaces have normal configuration and density. There is a normal gyral pattern. There is normal freed/white differentiation. No midline shift.. 2. Mild involutional changes. Chronic microvascular deep white matter disease is present. No areas of fluid restriction or acute ischemia noted. No areas of hemosiderin deposition or hemorrhage. 3. No intraparenchymal mass, hemorrhage, or acute territorial infarct. 4. The cerebellum, brainstem, basilar and suprasellar cisterns have normal appearance. No Chiari malformation. 5. Normal appearance of the 7th and 8th cranial nerve complexes, IACs and membranous labyrinth without evidence of masses or abnormal enhancement. Normal appearance of the bony labyrinth. No fluid or soft tissue accumulation middle ear cavities or mastoid air cells. PITUITARY: Infundibulum and pituitary have normal configuration. Midline structures appear normal. CSF SPACES: Appropriate for age. No hydrocephalus. Basal cisterns are patent. VESSELS: 1. There are normal flow voids noted in the great vessels at the skull base ORBITS AND PARANASAL SINUSES: 1. Both globes, extraocular muscles, optic nerves and retrobulbar fat appear unremarkable. 2. Minimal chronic mucosal thickening in ethmoid and maxillary sinuses. No air-fluid levels grant sinus opacification. BONY ELEMENTS: Bony elements of the cranial vault, facial skeleton and skull base have normal appearance. SCALP AND SOFT TISSUES: Normal appearance of the soft tissues of the scalp and the visualized face OTHER: None MRI/Brain W/WO Contrast IMPRESSION: 1. Mild involutional changes, chronic microvascular deep white matter disease. 2. No mass, hemorrhage, or acute territorial infarct. No areas of abnormal intraparenchymal enhancement. 3. Normal appearance of the 7th and 8th cranial nerve complexes, IACs and membranous labyrinth. No masses or abnormal enhancement. No fluid or soft tissue accumulation within the middle ear cavities or mastoid air cells. Electronically Signed: Jason Love MD at 20:51 EDT ,
[2022-11-30 14:20] LABS: CREATININE FINGERSTICK 1.2 mg/dL (0.70-1.30); EGFR FINGERSTICK > 60.0000 mL/min (>60)
== END | disposition home or self-care (01) ==
PROVIDERS: PCP Family Medicine; Referring Provider Otolaryngology; Visit Provider Otolaryngology
DX: R42 Dizziness and giddiness (principal); H93.13 Tinnitus, bilateral
CPT/HCPCS: 70553; A9575

== ENCOUNTER → 2023-04-21 | Outpatient (CLI) | payer MEDICARE, SELFPAY ==
--- OUTSIDE RECORDS SUMMARY | 2023-04-21 14:23 | XMS RPT_ITS | CCD ---
Author Name Unknown Address [address] [facility] [address] [place] [id number] Organization [facility] Care Team Providers Care Bevel Polisher Name Role Phone KATERYNA DOS SANTOS Attending Clarence DOS SANTOS, KATERYNA BALLESTEROS Referring KATERYNA Chaudhari Primary Care GYPSY Bacon Attending Unavailable GYPSY WARD Referring Unavailable GYPSY WARD Primary Care Unavailable Kateryna Dos Santos Primary Care Provider [phone] Kateryna Dos Santos Primary Care Provider [phone] Problems Problem Classification Problem Date Documented Da te Episodic/Chronic Peripheral and visceral atherosclerosis (1 source) Peripheral vascular disease; Translations: [Peripheral vascular disease, unspecified (HCC)] Chronic Results Test Name Value Interpretation Reference Range Facil ity Encounters Encounter Date Encounter Type Care Provider Facility Start: 05-28-2020 End: 05-28-2020 Orders Only Ilana Starkeynella Walsh Work Phone: [facility] Start: 04-18-2019 Patient encounter procedure GYPSY WARD Facility:[facility] Start: 11-26-2018 End: 11-27-2018 Patient encounter procedure KATERYNA DOS SANTOS [facility] Start: 11-26-2018 End: 11-26-2018 Subsequent hospital visit by physician Kateryna Dos Santos Work Phone: [facility] Peripheral Vascular Lab Procedures Date Procedure Procedure Detail Performing Clinician Start: 11-26-2018 Doppler ultrasonogra phy of artery of lower limb Kateryna Dos Santos Work Phone: Plan of Treatment Date Care Activity Detail Author Start: 03-26-2023 Tetanus vaccination Tetanus: Every 1 0yrs [facility] Start: 12-10-2019 Influenza vaccination given Se quential Influenza Vaccine (#1) [facility] Start: 12-09-2018 Influenza vaccination given SE QUENTIAL INFLUENZA VACCINE (#1) [facility] Start: 2013 Pneumococcal vaccination PNEUM OCOCCAL VACCINE AGE 65+ (1 of 2 - PCV13) [facility] Start: 1998 Administration of he rpes zoster vaccine Zoster Vaccines (1 of 2) [facility] Start: 1998 Screening for malign ant neoplasm of colon [facility] Start: 1966 Hepatitis C antibody , confirmatory test Hepatitis C Screening [facility] Start: 1964 COVID-19 Vaccine (1 of 2) COVID-19 V accine (1 of 2) [facility] Start: 1960 Adolescent depressio n screening assessment Depression Screening (PHQ9) [facility] Start: 11-24-1951 History and physical examination, annual for health maintenance Wellness Visit [facility] Start: 1948 Fall risk assessment Falls Risk Asse ssment [facility] Start: 1948 Hepatitis C antibody , confirmatory test HEPATITIS C SCREENING [facility] Start: 1948 Prostate specific an tigen measurement PSA Level [facility] Start: 1948 Screening for malign ant neoplasm of colon Colorectal Cancer Screening: Colonoscopy [facility] Start: 1948 Tetanus vaccination TETANUS EVERY 10 YR [facility] Payers Date Payer Category Payer Medicare [id number] 2018 [place]NA[place] A[place]IC[place] ([place]) xxxxxxxx 2018-Present xxxxxxxx [id number] 2018 [place] [id number] 2018-Present [id number] 1948 Unknown [id number] 1948 Unknown [id number] Social History Date Type Detail Facility Tobacco smoking status NHIS Unknown if ev er smoked 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 Advance Directives and Livin g Will 11/26/2018 8:37 AM Reason for Referral Status Reason Specialty Diagnoses / Procedures Referred By Contact Referred To Contact Pending Review Cardiology Diagnoses Peripheral vascular disease, unspecified (HCC) Procedures Segmental Doppler Lower Extremity Arterial US Doppler ankle/brachial index Kateryna Dos Santos Jr., DPM [address] [phone] Assessments Diagnosis Peripheral vascular disease, unspecified (HCC) Peripheral vascular disease, unspecified Additional Source Comments (unrecognized sect ion and content) No Status Records FoundNo Status Records Found INFORMATION SOURCE (unrecogn ized section and content) DATE CREATED AUTHOR AUTHOR'S ORGANIZ ATION 04/18/2019 [facility] Reason for Visit (unrecogniz ed section and content) FOR RECORDS PERTAINING TO PATIENTS WHO ARE OR HAVE BEEN ENROLLED IN A CHEMICAL DEPENDENCY/SUBSTANCEABUSE PROGRAM, SOME INFORMATION MAY BE OMITTED. This clinical summary was aggregated from multiple sources. Caution should be exercised in using it in the provision of clinical care. This summary normalizes information from multiple sources, and as a consequence, information in this document may materially change the coding, format and clinical context of patient data. In addition, data may be omitted in some cases. CLINICAL DECISIONS SHOULD BE BASED ON THE PRIMARY CLINICAL RECORDS. [employer] provides no warranty or guarantee of the accuracy or completeness of information in this document.
[2023-04-21 15:42] LABS: Erythrocyte Sedimentation Rate 9 mm/hr (0-20)
[2023-04-21 15:55] LABS: PSA,Total- Diagnostic 1.15 ng/mL (0.0-4.0)
[2023-04-21 16:04] LABS: Microalbumin,Random Urine 35.7 mg/L (NO RANGE EST.); Microalbumin:Creatinine Ratio 87.5 mg/g CRE (<30 mg/g CRE)
[2023-04-21 16:07] LABS: CRP < 2.90 mg/L (0.0-3.0); LDH 230 U/L (87-241)
[2023-04-26 15:07] LABS: Copper, Serum or Plasma 86 ug/dL (69-132)
== END | disposition home or self-care (01) ==
LOC: BIMLAB 13:22
PROVIDERS: PCP Family Medicine; Visit Provider Nurse Practitioner Family
DX: U07.1 COVID-19 (principal); A44.0 Systemic bartonellosis; G44.229 Chronic tension-type headache, not intractable; G31.84 Mild cognitive impairment of uncertain or unknown etiology; R61 Generalized hyperhidrosis; H93.13 Tinnitus, bilateral; R06.00 Dyspnea, unspecified; R42 Dizziness and giddiness; E61.7 Deficiency of multiple nutrient elements; G47.62 Sleep related leg cramps; R53.82 Chronic fatigue, unspecified; N40.0 Benign prostatic hyperplasia without lower urinary tract symptoms; I10 Essential (primary) hypertension
CPT/HCPCS: 36415; 82043; 82525; 82570; 83615; 84153; 85652; 86140

== ENCOUNTER → 2023-04-28 | Outpatient (CLI) | payer MEDICARE, SELFPAY ==
--- OUTSIDE RECORDS SUMMARY | 2023-04-28 10:06 | XMS RPT_ITS | CCD ---
Author Name Unknown Address [address] [facility] [address] [place] [address] Organization [facility] Care Team Providers Care Automatic Lathe Operator Name Role Phone KATERYNA DOS SANTOS Attending Clarence DOS SANTOS, KATERYNA BALLESTEROS Referring KATERYNA Chaudhari Primary Care GYPSY Bacon Attending Unavailable GYPSY WARD Referring Unavailable GYPSY WARD Primary Care Unavailable Kateryna Dos Santos Primary Care Provider Kateryna Dos Santos Primary Care Provider Problems Problem Classification Problem Date Documented Da te Episodic/Chronic Peripheral and visceral atherosclerosis (1 source) Peripheral vascular disease; Translations: [Peripheral vascular disease, unspecified (HCC)] Chronic Results Test Name Value Interpretation Reference Range Facil ity Encounters Encounter Date Encounter Type Care Provider Facility Start: 05-28-2020 End: 05-28-2020 Orders Only Ilana Starkeynella Walsh Work Phone: [facility] Start: 04-18-2019 Patient encounter procedure GYPSY WARD Facility:[facility] Start: 11-26-2018 End: 11-27-2018 Patient encounter procedure KATERYNA DOS SANTOS [facility] Start: 11-26-2018 End: 11-26-2018 Subsequent hospital visit by physician Kateryna Dos Santos Work Phone: [facility] Peripheral Vascular Lab Procedures Date Procedure Procedure Detail Performing Clinician Start: 11-26-2018 Doppler ultrasonogra phy of artery of lower limb Kateryna Dos Santos Work Phone: Plan of Treatment Date Care Activity Detail Author Start: 03-26-2023 Tetanus vaccination Tetanus: Every 1 0yrs [facility] Start: 12-10-2019 Influenza vaccination given Se quential Influenza Vaccine (#[facility]) [facility] Start: 12-09-2018 Influenza vaccination given SE QUENTIAL INFLUENZA VACCINE (#1) [facility] Start: 2013 Pneumococcal vaccination PNEUM OCOCCAL VACCINE AGE 65+ (1 of 2 - PCV13) [facility] Start: 1998 Administration of he rpes zoster vaccine Zoster Vaccines (1 of 2) [facility] Start: 1998 Screening for malign ant neoplasm of colon [facility] Start: 1966 Hepatitis C antibody , confirmatory test Hepatitis C Screening [facility] Start: 1964 COVID-19 Vaccine (1 of 2) COVID-19 V accine (1 of 2) [facility] Start: 1960 Adolescent depressio n screening assessment Depression Screening (PHQ9) [facility] Start: 11-24-1951 History and physical examination, annual for health maintenance Wellness Visit [facility] Start: 1948 Fall risk assessment Falls Risk Asse ssment [facility] Start: 1948 Hepatitis C antibody , confirmatory test HEPATITIS C SCREENING [facility] Start: 1948 Prostate specific an tigen measurement PSA Level [facility] Start: 1948 Screening for malign ant neoplasm of colon Colorectal Cancer Screening: Colonoscopy [facility] Start: 1948 Tetanus vaccination TETANUS EVERY 10 YR [facility] Payers Date Payer Category Payer Medicare [id number] 2018 Medicare AET[place] MANA[place]ED [place] DIC[place] AETNA MEDICARE PLAN (PPO) xxxxxxxx 2018-Present xxxxxxxx [id number] 2018 Medicare AET[place] MANA[place]IC[place] A[place] MEDIC[place] PLAN (PPO) [id number] 2018-Present 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 Advance Directives and Livin g Will 11/26/2018 8:37 AM Reason for Referral Status Reason Specialty Diagnoses / Procedures Referred By Contact Referred To Contact Pending Review Cardiology Diagnoses Peripheral vascular disease, unspecified (HCC) Procedures Segmental Doppler Lower Extremity Arterial US Doppler ankle/brachial index Kateryna Dos Santos Jr., DPM [address] [phone] Assessments Diagnosis Peripheral vascular disease, unspecified (HCC) Peripheral vascular disease, unspecified Additional Source Comments (unrecognized sect ion and content) No Status Records FoundNo Status Records Found INFORMATION SOURCE (unrecogn ized section and content) DATE CREATED AUTHOR AUTHOR'S ORGANIZ ATION 04/18/[address] [facility] Reason for Visit (unrecogniz ed [...] BE BASED ON THE PRIMARY CLINICAL RECORDS. [employer] provides no warranty or guarantee of the accuracy or completeness of information in this document.
== END | disposition home or self-care (01) ==
LOC: LABSPEC 10:04
PROVIDERS: PCP Family Medicine; Referring Provider Nurse Practitioner Family; Visit Provider Nurse Practitioner Family
DX: A44.0 Systemic bartonellosis (principal); G44.229 Chronic tension-type headache, not intractable; G31.84 Mild cognitive impairment of uncertain or unknown etiology; R61 Generalized hyperhidrosis; H93.13 Tinnitus, bilateral; R06.00 Dyspnea, unspecified; R42 Dizziness and giddiness; E61.7 Deficiency of multiple nutrient elements
CPT/HCPCS: 84403

== ENCOUNTER → 2023-07-28 | Outpatient (CLI) | payer MEDICARE, SELFPAY | END | disposition home or self-care (01) | LOC: LAB 15:21 → LABSPEC 15:21 | PROVIDERS: PCP Family Medicine; Referring Provider Nurse Practitioner Family; Visit Provider Nurse Practitioner Family | DX: A44.0 Systemic bartonellosis (principal); G44.229 Chronic tension-type headache, not intractable; G31.84 Mild cognitive impairment of uncertain or unknown etiology; R61 Generalized hyperhidrosis; H93.13 Tinnitus, bilateral; R06.00 Dyspnea, unspecified; R42 Dizziness and giddiness; E61.7 Deficiency of multiple nutrient elements | CPT/HCPCS: 84403 ==

== ENCOUNTER → 2023-09-21 | Outpatient (CLI) | payer MEDICARE, SELFPAY ==
[2023-09-21 17:51] LABS: Hematocrit 48.6 % (40-54); Hemoglobin 16.1 g/dL (13.0-16.5); Mean Corp Hgb Conc 33.1 g/dL (32-36); Mean Corpuscular Hgb 30.6 pg (27.0-32.0); Mean Corpuscular Volume 92.4 fL (80-94); Mean Platelet Vol. 10.1 fl (6.2-12.0); Platelet Count 190 K/mm3 (150-450); RBC Distribution Width CV 12.9 % (11.6-14.6); RBC Distribution Width SD 43.7 fl (35.1-43.9); Red Blood Count 5.26 M/mm3 (4.6-6.2); White Blood Count 6.7 K/mm3 (4.4-11.0)
[2023-09-21 18:08] LABS: Anion Gap 6 (5-15); BUN 18 mg/dL (7-18); BUN/Creat Ratio 16.4 RATIO (10-20); Calcium,Total 8.8 mg/dL (8.5-10.1); Chloride 107 mmol/L (98-107); EST Glomerular Filtration Rate 69 mL/min (>60); Est Glom Filt Rate - Afr Amer 84 mL/min (>60); Glucose 91 mg/dL (74-106); Sodium Level 137 mmol/L (136-145)
== END | disposition home or self-care (01) ==
LOC: MTLAB 14:59
PROVIDERS: PCP Family Medicine; Referring Provider Otolaryngology; Visit Provider Otolaryngology
DX: Z01.818 Encounter for other preprocedural examination (principal)
CPT/HCPCS: 36415; 80048; 85027

== ENCOUNTER → 2023-11-28 | Outpatient (CLI) | payer MEDICARE, SELFPAY | END | disposition home or self-care (01) | LOC: LABSPEC 14:07 | PROVIDERS: PCP Family Medicine; Referring Provider Nurse Practitioner Family; Visit Provider Nurse Practitioner Family | DX: E29.1 Testicular hypofunction (principal) | CPT/HCPCS: 84403 ==

== ENCOUNTER → 2024-01-12 | Outpatient (CLI) | payer MEDICARE, SELFPAY | END | disposition home or self-care (01) | PROVIDERS: PCP Family Medicine; Referring Provider Nurse Practitioner Family; Visit Provider Nurse Practitioner Family | DX: Z13.220 Encounter for screening for lipoid disorders (principal); D68.59 Other primary thrombophilia; Z83.2 Family history of diseases of the blood and blood-forming organs and certain disorders involving the immune mechanism; Z82.49 Family history of ischemic heart disease and other diseases of the circulatory system | CPT/HCPCS: 36415 ==

== ENCOUNTER → 2024-03-29 | Outpatient (CLI) | payer MEDICARE, SELFPAY ==
[2024-03-29 15:10] LABS: Absolute Lymphocyte Count 1.67 X10^3/uL (0.83-4.51); Absolute Neutrophil Count 2.6 X10^3/uL (2.0-7.7); Basophil# 0.02 X10^3/uL; Basophil% 0.4 % (0-1); Eosinophil# 0.12 X10^3/uL; Eosinophils% 2.2 % (0-5); Hematocrit 49.8 % (40-54); Hemoglobin 16.5 g/dL (13.0-16.5); Lymphocyte # 1.67 X10^3/ul (0.83-4.51); Lymphocyte % 31.2 % (19-41); Mean Corp Hgb Conc 33.1 g/dL (32-36); Mean Corpuscular Hgb 30.8 pg (27.0-32.0); Mean Corpuscular Volume 92.9 fL (80-94); Mean Platelet Vol. 10.1 fl (6.2-12.0); Monocyte# 0.92 X10^3/uL; Monocyte% 17.2 % (0-10); NRBC Flagged by Analyzer 0 % (0-5); Neutrophil # 2.62 X10^3/uL (2.7-7.7); Neutrophil % 48.8 % (47-70); Platelet Count 162 K/mm3 (150-450); RBC Distribution Width CV 13.8 % (11.6-14.6); RBC Distribution Width SD 46.6 fl (35.1-43.9); Red Blood Count 5.36 M/mm3 (4.6-6.2); White Blood Count 5.4 K/mm3 (4.4-11.0)
[2024-03-29 15:48] LABS: ALB/GLOB Ratio 0.9 RATIO (0.9-2.4); AST(SGOT) 26 U/L (15-37); Alanine Aminotransfer ALT/SGPT 36 U/L (16-61); Albumin, Serum 3.6 g/dL (3.2-5.0); Alkaline Phosphatase 76 U/L (45-117); Anion Gap 4 (5-15); BUN 16 mg/dL (7-18); BUN/Creat Ratio 13.7 RATIO (10-20); Calcium,Total 8.7 mg/dL (8.5-10.1); Chloride 107 mmol/L (98-107); Creatinine, Serum 1.17 mg/dL (0.70-1.30); EST Glomerular Filtration Rate 65 mL/min (>60); Est Glom Filt Rate - Afr Amer 78 mL/min (>60); Globulin 3.9 g/dL (2.2-4.2); Glucose 91 mg/dL (74-106); Potassium 4.1 mmol/L (3.5-5.1); Protein, Total 7.5 g/dL (6.4-8.2); Sodium Level 138 mmol/L (136-145)
[2024-03-29 16:02] LABS: Erythrocyte Sedimentation Rate 8 mm/hr (0-20)
== END | disposition home or self-care (01) ==
LOC: MTLAB 11:33
PROVIDERS: PCP Family Medicine; Referring Provider Family Medicine; Visit Provider Family Medicine
DX: R53.83 Other fatigue (principal); R73.03 Prediabetes
CPT/HCPCS: 36415; 80053; 83036; 85025; 85652

== ENCOUNTER → 2024-04-05 | Outpatient (CLI) | payer MEDICARE, SELFPAY ==
--- NOTE | 2024-04-05 08:54 | US_ITS ---
STUDY: ULTRASOUND BREAST - LEFT REASON FOR EXAM: Male, 73 years old. Palpable mass left breast TECHNIQUE: Axial and longitudinal images of the LEFT breast were performed with a high resolution ultrasound transducer. # OF IMAGES: 16 COMPARISON: Diagnostic mammogram earlier today FINDINGS: LEFT Breast: Homogeneous fatty background echotexture. Small amount of ill-defined hypoechoic breast parenchyma in the retroareolar left breast consistent with mild gynecomastia as seen on mammography corresponding to the area of tenderness.: US/Breast Limited Unilateral IMPRESSION: Mild left gynecomastia as seen on mammography. ASSESSMENT CATEGORY: BIRADS Category 2: Benign. A letter regarding these results will be sent to the patient by the facility within 30 days. Electronically Signed: Jason Lal MD at 11:09 EST ,
--- NOTE | 2024-04-05 08:55 | BI_ITS ---
MAMMOGRAPHY - BILATERAL DIAGNOSTIC REASON FOR EXAM: Male, 73 years old. LEFT NIPPLE TENDERNESS PERTINENT HISTORY: Non-contributory. TECHNIQUE: Digital examination. Mediolateral oblique (MLO) and craniocaudad (CC) views of both breasts were obtained. CAD: CAD was performed on this study. COMPARISON: None. FINDINGS: Breast Composition: The breasts are almost entirely fatty. There are no dominant masses or suspicious calcifications. There is a minimal amount of the breast parenchyma in the retroareolar left breast consistent with mild gynecomastia. No significant breast parenchyma on the right. BI/DIAG MAMM W/CAD, BILAT IMPRESSION: Mild left gynecomastia. Ultrasound of the tender area will be obtained. ASSESSMENT CATEGORY: BIRADS Category 0: Incomplete. Need additional imaging evaluation. A letter regarding these results will be sent to the patient by the facility within 30 days. FOLLOW UP RECOMMENDATION: Ultrasound Recommended. (I) Approximately 10% of breast cancers are not detected by mammography. A normal mammogram should not delay biopsy of a clinically suspicious abnormality. Electronically Signed: Jason Lal MD at 10:58 EST ,
== END | disposition home or self-care (01) ==
PROVIDERS: PCP Family Medicine; Referring Provider Family Medicine; Visit Provider Family Medicine
DX: N64.4 Mastodynia (principal)
CPT/HCPCS: 76642; 77062; 77066; G0279

== ENCOUNTER 2024-07-15 15:42 | Outpatient (CLI) | payer MEDICARE, SELFPAY ==
[2024-07-15 17:18] LABS: Erythrocyte Sedimentation Rate 2 mm/hr (0-20)
[2024-07-15 18:21] LABS: ALB/GLOB Ratio 1.5 RATIO (0.9-2.4); AST(SGOT) 37 U/L (<=37); Alanine Aminotransfer ALT/SGPT 32 U/L (<=46); Albumin, Serum 4.3 g/dL (3.4-4.8); Alkaline Phosphatase 56 U/L (40-129); Anion Gap 11 (5-15); BUN 17 mg/dL (4-19); Carbon Dioxide 25.2 mmol/L (21.0-32.0); Chloride 106 mmol/L (98-108); EST Glomerular Filtration Rate 57 (>60); Globulin 2.8 g/dL (2.2-4.2); Glucose 92 mg/dL (70-99); Potassium 4.2 mmol/L (3.3-5.1); Protein, Total 7.1 g/dL (5.9-8.4); Sodium Level 142 mmol/L (133-145); Thyroid Stim Hormone (TSH) 0.882 uIU/mL (0.300-4.200); Total Bilirubin 0.67 mg/dL (0.00-1.30)
[2024-07-15 19:35] LABS: Hemoglobin A1c 5.9 % (<=5.6)
== END 2024-07-15 23:59 | disposition home or self-care (01) ==
LOC: LABSPEC 15:43
PROVIDERS: PCP Family Medicine; Referring Provider Family Medicine; Visit Provider Family Medicine
DX: R53.83 Other fatigue (principal); R73.03 Prediabetes
CPT/HCPCS: 80053; 83036; 84443; 85652

== ENCOUNTER → 2024-07-16 | Outpatient (CLI) | payer MEDICARE, SELFPAY ==
[2024-07-17 14:08] LABS: PSA, Free 0.54 ng/mL; PSA, Free % 20.1 % (.)
== END | disposition home or self-care (01) ==
PROVIDERS: PCP Family Medicine; Referring Provider Urology; Visit Provider Urology
DX: N40.1 Benign prostatic hyperplasia with lower urinary tract symptoms (principal)
CPT/HCPCS: 36415; 84153; 84154

== ENCOUNTER → 2024-11-05 | Outpatient (CLI) | payer MEDICARE, SELFPAY | END | disposition home or self-care (01) | LOC: MTLAB 15:18 | PROVIDERS: PCP Family Medicine; Referring Provider Internal Medicine Pulmonary Disease; Visit Provider Internal Medicine Pulmonary Disease | DX: G47.10 Hypersomnia, unspecified (principal) | CPT/HCPCS: 80307 ==

== ENCOUNTER 2024-11-06 09:19 | Outpatient (CLI) | payer MEDICARE, SELFPAY ==
[2024-11-06 12:05] LABS: Barbiturate Urine NEGATIVE (< 200 ng/mL); Benzodiazepine Urine NEGATIVE (< 200 ng/mL); PCP Urine NEGATIVE (< 25 ng/mL); THC Urine NEGATIVE (< 50 ng/mL)
== END 2024-11-06 23:59 | disposition home or self-care (01) ==
LOC: MTLAB 09:20
PROVIDERS: PCP Family Medicine; Referring Provider Internal Medicine Pulmonary Disease; Visit Provider Internal Medicine Pulmonary Disease
DX: G47.10 Hypersomnia, unspecified (principal)
CPT/HCPCS: 80307

== ENCOUNTER → 2025-04-07 | Outpatient (CLI) | payer MEDICARE, SELFPAY ==
[2025-04-07 15:20] LABS: Hematocrit 48.5 % (40-54); Hemoglobin 16.2 g/dL (13.0-16.5); Immature Granulocytes Count 0.020 X10^3/uL (0.0-0.0); Mean Corp Hgb Conc 33.4 g/dL (32-36); Mean Corpuscular Volume 94.4 fL (80-94); Mean Platelet Vol. 9.4 fl (6.2-12.0); NRBC Flagged by Analyzer 0 % (0-5); Platelet Count 181 K/mm3 (150-450); RBC Distribution Width CV 12.5 % (11.6-14.6); RBC Distribution Width SD 43.2 fl (35.1-43.9); Red Blood Count 5.14 M/mm3 (4.6-6.2); White Blood Count 6.0 K/mm3 (4.4-11.0)
[2025-04-07 15:40] LABS: Creatinine, Urine (random) 90.90 mg/dL (39.00-259.00); Microalbumin,Random Urine 68.7 mg/L (<20 mg/L)
[2025-04-07 15:46] LABS: AST(SGOT) 34 U/L (<=37); Alanine Aminotransfer ALT/SGPT 37 U/L (<=46); Albumin, Serum 4.3 g/dL (3.4-4.8); Alkaline Phosphatase 67 U/L (40-129); Anion Gap 9 (7-18); BUN 14 mg/dL (4-19); BUN/Creat Ratio 13.4 RATIO (10-20); Calcium,Total 9.3 mg/dL (7.6-11.0); Carbon Dioxide 27.0 mmol/L (20.0-29.0); Chloride 102 mmol/L (96-106); Globulin 3.2 g/dL (2.2-4.2); Glucose 93 mg/dL (70-99); PSA,Total - Annual Screen 2.45 ng/mL (0.02-4.00); Potassium 4.2 mmol/L (3.5-5.1)
== END | disposition home or self-care (01) ==
LOC: LABSPEC 15:10
PROVIDERS: PCP Family Medicine; Referring Provider Family Medicine; Visit Provider Family Medicine
DX: G47.30 Sleep apnea, unspecified (principal); N41.1 Chronic prostatitis; R73.03 Prediabetes; I10 Essential (primary) hypertension
CPT/HCPCS: 80053; 82043; 82570; 83036; 84153; 85025; G0103